=== PATIENT | female | born 1985 | race Caucasian/White ===

== ENCOUNTER 2019-03-03 00:51 | Emergency (ER) | payer OTHER ==
[2019-03-03] MEDS: ONDANSETRON 4 MG INJ IV (02:14)
[2019-03-03] MEDS: SOD CHLORIDE 0.9% 1,000 ML IV ×2 (02:15→03:12)
[2019-03-03 02:19] LABS: ADD MAN DIFF? NO
[2019-03-03 02:22] LABS: WHITE BLOOD COUNT 11.8 10^3/ul (4.8-10.8)
[2019-03-03 02:22] LABS: BASOPHILS % 0.3 % (0.0-2.0); HEMATOCRIT 38.8 % (37.0-47.0); HEMOGLOBIN 12.9 g/dl (12.0-16.0); LYMPHOCYTES # 0.6 10^3/ul (0.8-2.9); LYMPHOCYTES % 5.3 % (15.0-51.0); MEAN CORPUSCULAR HEMOGLOBIN 25.6 pg (29.0-33.0); MEAN CORPUSCULAR HGB CONC 33.2 g/dl (32.0-37.0); MEAN PLATELET VOLUME 9.3 fl (7.4-10.4); MONOCYTE # 0.8 10^3/ul (0.3-0.9); MONOCYTES % 7.1 % (0.0-11.0); NEUTROPHIL # 10.2 10^3/ul (1.6-7.5); NEUTROPHILS % 86.4 % (39.0-77.0); PLATELET COUNT 283 10^3/UL (140-415); RED BLOOD COUNT 5.04 10^6/ul (4.20-5.40); RED CELL DISTRIBUTION WIDTH 13.4 % (11.5-14.5)
[2019-03-03 02:36] LABS: ADD UMIC YES; UR ASCORBIC ACID NEGATIVE (NEGATIVE); UR BACTERIA FEW /HPF (NONE SEEN); UR BILIRUBIN (Dip) NEGATIVE (NEGATIVE); UR BLOOD (Dip) 1+ mg/dL (NEGATIVE); UR CLARITY CLEAR (CLEAR); UR COLOR AMBER (YELLOW); UR GLUCOSE (Dip) 3+ mg/dL (NEGATIVE); UR KETONES (Dip) 1+ mg/dL (NEGATIVE); UR LEUKOCYTE ESTERASE (Dip) NEGATIVE Leu/ul (NEGATIVE); UR NITRITE (Dip) POSITIVE (NEGATIVE); UR RBC 9 /HPF (0-5); UR SPECIFIC GRAVITY (Dip) 1.027 (1.003-1.030); UR SQUAMOUS EPITHELIAL CELL FEW /HPF (FEW); UR TOTAL PROTEIN (Dip) 2+ mg/dl (NEGATIVE); UR UROBILINOGEN (Dip) 2+ mg/dL (NEGATIVE); UR WBC 17 /HPF (0-5)
[2019-03-03] MEDS: KETOROLAC 30 MG INJ IV (02:39)
[2019-03-03 02:56] LABS: ALANINE AMINOTRANSFERASE 24 IU/L (13-69); ALBUMIN 3.9 g/dl (3.3-4.9); ALKALINE PHOSPHATASE 181 IU/L (42-121); ANION GAP 17 (5-13); ASPARTATE AMINO TRANSFERASE 19 IU/L (15-46); BILIRUBIN,INDIRECT 1.1 mg/dl (0-1.1); BILIRUBIN,TOTAL 1.1 mg/dl (0.2-1.3); BLOOD UREA NITROGEN 15 mg/dl (7-20); CALCIUM 9.5 mg/dl (8.4-10.2); CARBON DIOXIDE 20 mmol/L (21-31); CHLORIDE 96 mmol/L (97-110); CREATININE 0.85 mg/dl (0.44-1.00); Estimated GFR > 60 mL/min (>60); LIPASE 22 U/L (23-300); POTASSIUM 3.8 mmol/L (3.5-5.1); SODIUM 133 mmol/L (135-144); TOTAL PROTEIN 8.2 g/dl (6.1-8.1)
[2019-03-03 03:00] LABS: GLUCOSE 511 mg/dl (70-220)
[2019-03-03] MEDS: ACETAMINOPHEN 500 MG TAB PO (03:11)
[2019-03-03] MEDS: CEFTRIAXONE 1 GM/50 ML (PMX) 50 ML IVPB (03:12)
[2019-03-03 03:49] LABS: HEMOGLOBIN A1C 10.5 % (0-5.9)
== END 2019-03-03 04:33 | disposition home or self-care (01) ==
LOC: FTE 00:51
DX: N39.0 Urinary tract infection, site not specified (principal); R73.09 Other abnormal glucose; Z79.84 Long term (current) use of oral hypoglycemic drugs
CPT/HCPCS: 36415; 80053; 81001; 83036; 83690; 84703; 85025; 87086; 96361; 96365; 96375; 99284-25